=== PATIENT | male | born 1950 | race Asian ===

== ENCOUNTER 2017-03-19 11:46 | Emergency (ER) | payer MEDICARE, BC ==
[~2017-03-19] VITALS: Ht 172.7 cm; Wt 75.0 kg
[~2017-03-19 11:46] MED LIST: ACET325T33 PO; ATOR40TA68 PO; CLON0.3T PO; MONT10TA21 PO; NIFE30TA60 PO; ONDA4TAB8 PO; RAMI10CA48 PO
[2017-03-19 11:51] VITALS: Ht 172.7 cm; Wt 75.0 kg
[2017-03-19] MEDS ORDERED: AZIT250T94 PO (13:24)
--- NOTE | 2017-03-19 13:27 | ERD ---
ER Documentation Chief Complaint Date/Time DATE: 03/19/17 TIME: 13:25 Chief Complaint PRODUCTIVE COUGH WITH GREENISH COLORED SPUTUM, NAUSEATED SINCE THURSDAY HPI 67-year-old male complains of a productive cough for last week. He has a history of asthma. He uses Singulair and albuterol. Denies any chest pain or shortness of breath. He may have had intermittent tactile fevers but no measured temperature. He has additional complaint of pain radiating to his fourth and fifth digit from his elbow. He does sit with his elbow resting on arm rests frequently during work. Pain does not radiate above his elbow. Denies any weakness. ROS All systems reviewed and are negative except as per history of present illness. Medications Home Meds Active Scripts Azithromycin* (Zithromax*) 250 Mg Tablet, 250 MG PO .GulshanPACK DIRECTED, #6 TAB TAKE 500 MG (2 TABS) THE FIRST DAY THEN 250 MG (1 TAB) DAYS 2-5 Prov:NITHIN SINGH MD 03/19/17 Acetaminophen* (Tylenol*) 325 Mg Tablet, 2 TAB PO Q8 Y for PAIN AND OR ELEVATED TEMP, #20 TAB Prov:HIRA MINOR PA-C 05/28/16 Ondansetron Hcl* (Zofran*) 4 Mg Tablet, 4 MG PO Q6H for NAUSEA AND/OR VOMITING, #30 TAB Prov:HIRA MINOR PA-C 05/28/16 Reported Medications Montelukast Sodium* (Singulair*) 10 Mg Tablet, 10 MG PO QHS, #30 TAB 05/06/16 Atorvastatin* (Atorvastatin*) 40 Mg Tablet, 40 MG PO QHS, #30 TAB 05/06/16 Clonidine Hcl* (Clonidine Hcl*) 0.3 Mg Tablet, 0.3 MG PO Q6, TAB 05/06/16 Nifedipine* (Nifedipine ER*) 30 Mg Tablet.sa, 30 MG PO DAILY, TAB.SA 05/06/16 Ramipril (Ramipril) 10 Mg Capsule, 10 MG PO BID, CAP 05/06/16 Allergies Allergies: Coded Allergies: Penicillins (Verified Allergy, Unknown, 05/28/16) aspirin (Verified Allergy, Unknown, 05/28/16) Uncoded Allergies: MSG (Allergy, Unknown, 05/06/16) PMhx/Soc History of Surgery: Yes (Appendectomy, Tonsillectomy) Anesthesia Reaction: No Hx Neurological Disorder: No Hx Respiratory Disorders: Yes (Asthma) Hx Cardiac Disorders: Yes (HTN) Hx Psychiatric Problems: Yes (Anxiety) Hx Miscellaneous Medical Probl: No Hx Alcohol Use: Yes ("occassional wine") Hx Substance Use: No Hx Tobacco Use: No Smoking Status: Never smoker Physical Exam Vitals Vital Signs Date Time Temp Pulse Resp B/P Pulse Ox O2 Delivery O2 Flow Rate FiO2 03/19/17 11:51 98.3 71 19 116/69 98 Physical Exam Const: []Alert, [id number]. Head: Atraumatic Eyes: Normal Conjunctiva ENT: Normal External Ears, Nose and Mouth. Neck: Full range of motion..~ No meningismus. Resp: Clear to auscultation bilaterally. Slight rhonchi without rales, significant wheezing or retractions per Cardio: Regular rate and rhythm, no murmurs Abd: Soft, non tender, non distended. Normal bowel sounds Skin: No petechiae or rashes Back: No midline or flank tenderness Ext: No cyanosis, or edema. Patient points to the left fourth and fifth digits and ulnar distribution the area of his extremity complaints. No weakness , deformities, restricted range of motion or signs of ischemia. Neur: Awake and alert Psych: Normal Mood and Affect Procedures/MDM Patient presents with productive cough last week with a history of asthma. There is no evidence of hypoxemia, respiratory distress. Patient's extremity symptoms do not correlate with coronary artery disease or cardiac chest pain. 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 Patient was treated with Zithromax and further observation at home. The patient was stable with no new complaints during the ER course. Clinically, there is no current evidence to suggest meningitis, sepsis, acute abdomen, pneumonia, acute coronary syndrome, pulmonary embolism, or any other emergent condition appearing to require further evaluation or hospitalization. The patient should certainly return for any new or worsening symptoms per the aftercare instructions. They should otherwise follow-up with her primary care doctor for reevaluation this week. Departure Diagnosis: Primary Impression: Cough Condition: Stable Patient Instructions: Bronchitis, Antiobiotic Treatment (Adult) Additional Instructions: Recheck for new or worsening symptoms or primary care doctor. NITHIN SINGH MD Mar 19, 2017 13:27
== END 2017-03-19 13:58 | disposition home or self-care (01) ==
LOC: FTE 11:46
DX: R05 Cough (principal); I10 Essential (primary) hypertension; J45.909 Unspecified asthma, uncomplicated
CPT/HCPCS: 99283

== ENCOUNTER 2019-02-20 11:37 | Emergency (ER) | payer BC, MEDICARE ==
[~2019-02-20] VITALS: Ht 160 cm; Wt 78.3 kg
[~2019-02-20 11:37] MED LIST changes: +AZIT250T PO; +NIFE30TA23 PO; -NIFE30TA60 PO
[2019-02-20 11:46] VITALS: BP 144/84; PULSE 78; RESP 20; Ht 160 cm; Wt 78.3 kg
--- NOTE | 2019-02-20 14:06 | ERD ---
ER Documentation Chief Complaint Chief Complaint r knee pain since yesterday - denies injury/fall/trauma ROS All systems reviewed and are negative except as per history of present illness. Medications Home Meds Active Scripts Azithromycin* (Zithromax*) 250 Mg Tablet, 250 MG PO .UCHECK DIRECTED, #6 TAB TAKE 500 MG (2 TABS) THE FIRST DAY THEN 250 MG (1 TAB) DAYS 2-5 Prov:NITHIN SINGH MD 03/19/17 Acetaminophen* (Tylenol*) 325 Mg Tablet, 2 TAB PO Q8 PRN for PAIN AND OR ELEVATED TEMP, #20 TAB Prov:HIRA MINOR PA-C 05/28/16 Ondansetron Hcl* (Zofran*) 4 Mg Tablet, 4 MG PO Q6H for NAUSEA AND/OR VOMITING, #30 TAB Prov:HIRA MINOR PA-C 05/28/16 Reported Medications Montelukast Sodium* (Singulair*) 10 Mg Tablet, 10 MG PO QHS, #30 TAB 05/06/16 Atorvastatin* (Atorvastatin*) 40 Mg Tablet, 40 MG PO QHS, #30 TAB 05/06/16 Clonidine Hcl* (Clonidine Hcl*) 0.3 Mg Tablet, 0.3 MG PO Q6, TAB 05/06/16 Nifedipine* (Nifedipine ER*) 30 Mg Tablet.sa, 30 MG PO DAILY, TAB.SA 05/06/16 Ramipril (Ramipril) 10 Mg Capsule, 10 MG PO BID, CAP 05/06/16 Allergies Allergies: Coded Allergies: Penicillins (Verified Allergy, Unknown, 05/28/16) aspirin (Verified Allergy, Unknown, 05/28/16) Uncoded Allergies: MSG (Allergy, Unknown, 05/06/16) PMhx/Soc History of Surgery: Yes (Appendectomy, Tonsillectomy) Anesthesia Reaction: No Hx Neurological Disorder: No Hx Respiratory Disorders: Yes (Asthma) Hx Cardiac Disorders: Yes (HTN) Hx Psychiatric Problems: Yes (Anxiety) Hx Miscellaneous Medical Probl: Yes (gout) Hx Alcohol Use: Yes ("occassional wine") Hx Substance Use: No Hx Tobacco Use: No Smoking Status: Never smoker Physical Exam Vitals Vital Signs Date Temp Pulse Resp B/P (MAP) Pulse Ox O2 O2 Flow FiO2 Time Delivery Rate 02/20/19 97.6 78 20 144/84 98 11:46 (104) Physical Exam Const: No acute distress Head: Atraumatic Eyes: Normal Conjunctiva ENT: Normal External Ears, Nose and Mouth. Neck: Full range of motion. No meningismus. Resp: Clear to auscultation bilaterally Cardio: Regular rate and rhythm, no murmurs Abd: Soft, non tender, non distended. Normal bowel sounds Skin: No petechiae or rashes Back: No midline or flank tenderness Ext: No cyanosis, or edema Neur: Awake and alert Psych: Normal Mood and Affect Departure Diagnosis: Primary Impression: Knee pain Chronicity: acute Laterality: right Qualified Codes: M25.561 - Pain in right knee Condition: Fair Patient Instructions: Knee Sprain Referrals: KARLA COLLINS MD- (PCP) Additional Instructions: Call your primary care doctor TOMORROW for an appointment during the next 1-2 days.See the doctor sooner or return here if your condition worsens before your appointment time. AMINTA COLE DO Feb 20, 2019 14:06
== END 2019-02-20 14:12 | disposition home or self-care (01) ==
LOC: FTE 11:37
DX: M25.561 Pain in right knee (principal); I10 Essential (primary) hypertension; J45.909 Unspecified asthma, uncomplicated
CPT/HCPCS: 73562